=== PATIENT | female | born 1950 | race Caucasian/White ===

== ENCOUNTER → 2018-10-19 | Day surgery (SDC) | payer MEDICARE ==
[2018-09-28 14:09] LABS: BASOPHILS % 0.5 % (0.0-1.0); EOSINOPHILS # (AUTO) 0.1 (0.0-0.4); EOSINOPHILS % 1.1 % (0.0-6.0); HEMATOCRIT 41.2 % (34.2-44.1); HEMOGLOBIN 13.4 g/dL (12.0-16.0); LYMPHOCYTES # (AUTO) 3.3 (1.0-3.2); LYMPHOCYTES % 43.2 % (18.0-39.1); MEAN CORPUSCULAR HGB CONC 32.5 g/dL (31-35); MEAN CORPUSCULAR VOLUME 92.2 fL (81-99); MONOCYTES # (AUTO) 0.6 (0.2-0.8); MONOCYTES % 8.2 % (4.4-11.3); NEUTROPHILS # (AUTO) 3.5 (2.1-6.9); NEUTROPHILS % 46.7 % (38.7-80.0); PLATELET COUNT 242 x10e3/uL (140-360); RED BLOOD COUNT 4.47 x10e6/uL (3.6-5.1); RED CELL DISTRIBUTION WIDTH 13.2 % (11.7-14.4)
[~2018-10-19] MED LIST: ASPIRIN81 MG PO; COQ-10100 MG PO; EVISTA60 MG PO; FENTANYL CITRATE/PF 100MCG/2 ML INJ ONE; HYOSCYAMINE 0.125 MG TAB ONE; MAGNESIUM500 MG PO; MIDAZOLAM HCL 2 MG/2 ML VIAL ONE; MULTI-VITAMIN1 EACH PO; PROPOFOL IV EMULSION 10 MG/ML 50 ML VIAL ONE; RANITIDINE HCL150 MG PO; RED YEAST RICE600 MG PO; VITAMIN D35000 UNIT PO; [UNRECOGNIZED DRUG - OTHER] PO
--- OUTSIDE RECORDS SUMMARY | 2018-10-19 06:43 | XMS REPORT | Clinical Summary ---
Author Author [place] [employer] Address Unknown Phone Unavailable Care Team Providers Care Biofuels Production Technician Name Role Phone Rasheeda Sow MD PCP Allergies No Known Allergies Medications No known medications Active Problems Not on file Encounters Care Team Description Date Type Specialty Rasheeda Sow MD Cervical strain, initial encounter 04/13/2018 Hospital Radiology Encounter Rasheeda Sow MD Screening for malignant neoplasm of breast 04/13/2018 Hospital Radiology Encounter Rasheeda Sow MD Screening for malignant neoplasm of breast (Primary Dx) 04/12/2018 Transcribe Access Orders after 10/18/2017 Social History Date Tobacco Use Types Packs/Day Years Used Never Smoker Smokeless Tobacco: Never Used Alcohol Use Drinks/Week oz/Week Comments No Sex Assigned at Date Recorded Not on file Industry Job Start Date Occupation Not on file Not on file Not on file Travel End Travel History Travel Start No recent travel history available. Last Filed Vital Signs Not on file Plan of Treatment Health Maintenance Due Date Last Done Comments COLONOSCOPY SCREENING 01/12/1998 SHINGLES VACCINES (#1) 01/12/1998 65+ PNEUMOCOCCAL VACCINE 01/12/2013 (1 of 2 - PCV13) INFLUENZA VACCINE 10/13/2018 BREAST CANCER SCREENING 04/13/2020 04/13/2018, 04/02/2017, 03/26/2016, Additional history exists Procedures Comments Procedure Name Priority Date/Time Associated Diagnosis XR CERVICAL SPINE Routine 04/13/2018 Cervical strain, initial COMPLETE W FLEX EXT 8:13 AM [employer] encounter MAMMO BREAST SCREEN Routine 04/13/2018 Screening for malignant TOMOSYNTHESIS BILATERAL 7:35 AM [employer]CESSION WORKER neoplasm of breast after 10/18/2017 Results * XR Cervical Spine Complete w flex/ext (04/13/2018 8:13 AM CONCESSION WORKER) Specimen Narrative Performed At EXAMINATION: XR CERVICAL SPINE COMPLETE W FLEX EXT RADIANT CLINICAL HISTORY: S16.1XXA Strain of musclefascia and tendon at neck levelinitial encounter COMPARISON:None IMPRESSION: 8 views of the cervical spine including dynamic lateral radiographs are submitted. There is straightening of normal cervical lordosis. Moderate disc degenerative changes are noted at C5-6 and C6-7. Mild disc degenerative changes at C4-5. 1-2 mm grade 1 anterolisthesis is induced on flexion at C3 relative to C4 Vertebral heights are preserved. No fracture or aggressive bone lesion is seen. The prevertebral soft tissues are unremarkable. [id number] Procedure Note Interface, Radiology Results Incoming - 04/13/2018 8:25 AM CONCESSION WORKER EXAMINATION: XR CERVICAL SPINE COMPLETE W FLEX EXT CLINICAL HISTORY: S16.1XXA Strain of muscle fascia and tendon at neck level initial encounter COMPARISON: None IMPRESSION: 8 views of the cervical spine including dynamic lateral radiographs are submitted. There is straightening of normal cervical lordosis. Moderate disc degenerative changes are noted at C5-6 and C6-7. Mild disc degenerative changes at C4-5. 1-2 mm grade 1 anterolisthesis is induced on flexion at C3 relative to C4 Vertebral heights are preserved. No fracture or aggressive bone lesion is seen. The prevertebral soft tissues are unremarkable. [id number] Performing Organization Address City/State/Zipcode Phone Number [facility] [phone] [place] [address] * Mammo Breast Screen Tomosynthesis Bilateral (04/13/2018 7:35 AM CONCESSION WORKER) Specimen Narrative Performed At PROCEDURE: MAMMO BREAST SCREEN [facility] Computer aided detection was utilized for the interpretation of the digital bilateral screening mammography with tomosynthesis. COMPARISON: Prior studies dating 04/02/2017, 03/26/2016, 02/18/2015 and 02/02/2014 DENSITY: The breast parenchyma is heterogeneously dense, decreasing the sensitivity of the study. There are benign scattered calcifications in both breasts. There is no suspicious new masses, architectural distortions or grouped calcifications. IMPRESSION:No mammographic evidence of malignancy. RECOMMENDATION: Comparison with physical exam and annual screening mammography. BI-RADS 2: Benign. This facility is accredited by the [employer] for Mammography. A negative x-ray report should not delay biopsy if a dominant or clinically suspicious mass is present.Not all cancers are identified by x-ray. [id number] Performing Organization Address City/State/Zipcode Phone Number [facility] [phone] [place] [address] after 10/18/2017 Insurance Type Payer Benefit Subscriber ID Effective Phone Address Plan / Dates Group PPO HUMANA MEDICARE HUMANA xxxxxxxxx 2017-P MEDICARE resent PPO/PFFS/E [facility] Advance Directives Patient has advance care planning documents on file. For more information, nayan rowan contact: Wayne Caballero [address] [place] [address]
[2018-10-19 10:22] VITALS: BP 118/74
--- NOTE | 2018-10-19 16:15 | Operative Report ---
DATE OF PROCEDURE: 10/19/2018 SURGEON: Alcon Davis MD PROCEDURE: Colonoscopy and polypectomy. INDICATIONS FOR COLONOSCOPY: Surveillance colonoscopy, personal history of colon polyps. MEDICATIONS: The patient was done under MAC, please see anesthesiologist's note. PROCEDURE IN DETAIL: With the patient in left lateral decubitus position, a flexible fiberoptic Olympus colonoscope was inserted into the rectum with ease and advanced all the way to the cecum. The scope was then withdrawn slowly. Mucosa overlying the cecum, ascending colon, and transverse colon appeared to be within normal limits. A minute nodule was biopsied from the proximal descending colon. Four polyps were hot biopsied from the sigmoid. Three polyps were hot biopsied from the rectum. The scope was then retroflexed into the distal rectum and moderate-sized internal hemorrhoids were noted, none of which was actively bleeding. The scope was then straightened out, it was subsequently withdrawn. The patient tolerated the procedure well. IMPRESSION: 1. Descending colon, minute nodule, cold biopsied. 2. Sigmoid colon polyps x4, hot biopsied. 3. Rectal polyps x3, hot biopsied. 4. Internal hemorrhoids, none actively bleeding. PLAN: Follow up histology. Initiate high-fiber, low-fat diet. Initiate high-fiber supplement. The patient might benefit from a followup colonoscopy in 5 years. Alcon Davis MD [facility] [place][id number] cc: Rasheeda Sow MD
== END | disposition home or self-care (01) ==
LOC: OR 06:41
PROVIDERS: ATTEND Internal Medicine Gastroenterology
DX: K63.5 Polyp of colon (principal); K62.1 Rectal polyp; R14.0 Abdominal distension (gaseous); K52.9 Noninfective gastroenteritis and colitis, unspecified; K59.00 Constipation, unspecified; K62.5 Hemorrhage of anus and rectum; K21.9 Gastro-esophageal reflux disease without esophagitis; M19.90 Unspecified osteoarthritis, unspecified site; Z80.0 Family history of malignant neoplasm of digestive organs; K64.8 Other hemorrhoids; R03.0 Elevated blood-pressure reading, without diagnosis of hypertension; Z68.29 Body mass index [BMI] 29.0-29.9, adult; R12 Heartburn
CPT/HCPCS: 36415; 45380; 45384; 85025; 88305; 93005; J2250; J2704; J3010; 45378

== ENCOUNTER → 2019-12-13 | Day surgery (SDC) | payer MEDICARE, OTHER ==
[2019-12-08 10:42] LABS: BASOPHILS # (AUTO) 0.1 (0.0-0.1); BASOPHILS % 0.9 % (0.0-1.0); EOSINOPHILS # (AUTO) 0.1 (0.0-0.4); EOSINOPHILS % 1.4 % (0.0-6.0); HEMATOCRIT 41.3 % (34.2-44.1); HEMOGLOBIN 13.1 g/dL (12.0-16.0); LYMPHOCYTES # (AUTO) 2.9 (1.0-3.2); LYMPHOCYTES % 43.8 % (18.0-39.1); MEAN CORPUSCULAR HEMOGLOBIN 29.4 pg (28-32); MEAN CORPUSCULAR HGB CONC 31.7 g/dL (31-35); MEAN CORPUSCULAR VOLUME 92.8 fL (81-99); MONOCYTES # (AUTO) 0.6 (0.2-0.8); MONOCYTES % 8.6 % (4.4-11.3); NEUTROPHILS # (AUTO) 2.9 (2.1-6.9); NEUTROPHILS % 45.1 % (38.7-80.0); PLATELET COUNT 200 x10e3/uL (140-360); RED BLOOD COUNT 4.45 x10e6/uL (3.6-5.1); RED CELL DISTRIBUTION WIDTH 13.2 % (11.7-14.4)
[~2019-12-13] MED LIST changes: +ATORVASTATIN CA20 MG PO; -FENTANYL CITRATE/PF 100MCG/2 ML INJ ONE; -HYOSCYAMINE 0.125 MG TAB ONE; +LIDOCAINE HCL 2% LOCAL INJ 5 ML SDV VIAL INJ ONE; +PROPOFOL IV EMULSION 10 MG/ML 20 ML VIAL ONE; -PROPOFOL IV EMULSION 10 MG/ML 50 ML VIAL ONE
--- NOTE | 2019-12-13 07:15 | NUR ---
SPIRITUAL CARE - Pre-Surgery Assessment: Pt in bed. Pt's at bedside. Pt reported supportive attention from family and friends. Intervention: Aeronautical Engineering Officer provided pastoral presence, hospitality, and sympathetic listening. Acquainted pt with availability of r developer while hospitalized. Outcome: Pt expressed appreciation for visit. No need for follow up indicated at this time. MARTHA Mohan Spiritual Care Department O: [phone]
[2019-12-13 08:40] VITALS: BP 116/71
--- NOTE | 2019-12-13 10:16 | Operative Report ---
DATE OF PROCEDURE: 12/13/2019 SURGEON: Alcon Davis MD PROCEDURE: EGD with biopsies. INDICATIONS FOR EGD: Burning, upper abdominal pain, heartburn, bloating. MEDICATIONS: The patient was done under MAC, please see anesthesiologist's note. PROCEDURE IN DETAIL: With the patient in the left lateral decubitus position, the flexible fiberoptic Olympus gastroscope was introduced into the esophagus under direct visualization without any difficulty. There was some patchy erythema noted in distal esophagus. Some focal nodularity was noted at the GE junction that was biopsied. The scope was then advanced with ease into the stomach traversing a small hiatal hernia. The mucosa overlying the antrum and the body revealed some patchy erythema and [id number] edema, and biopsies were obtained and sent to stain for H. pylori. The pylorus was of normal contour and shape, was intubated with ease and the scope was advanced all the way to the second portion of the duodenum. Biopsies were obtained from the proximal second portion and duodenal bulb to rule out sprue. The scope was then withdrawn back into the stomach and retroflexed, and previously described hiatal hernia was also noted in the retroflexed position. The scope was then straightened out, it was subsequently withdrawn, and the patient tolerated the procedure well. IMPRESSION: 1. Distal esophagitis, mild. 2. Focal nodularity, GE junction, biopsied. 3. Hiatal hernia. 4. Gastritis, biopsied, biopsies sent to stain for Helicobacter pylori. 5. Rule out sprue. PLAN: Follow up histology. Increase Protonix to 40 mg one p.o. before meals b.i.d. Alcon Davis MD [facility] [place][id number] cc: Rasheeda Sow MD
== END | disposition home or self-care (01) ==
LOC: OR 05:45
PROVIDERS: ATTEND Internal Medicine Gastroenterology
DX: K29.70 Gastritis, unspecified, without bleeding (principal); K20.9 Esophagitis, unspecified; K22.8 Other specified diseases of esophagus; K44.9 Diaphragmatic hernia without obstruction or gangrene; K21.9 Gastro-esophageal reflux disease without esophagitis; K58.9 Irritable bowel syndrome, unspecified; Z86.010 Personal history of colon polyps; M19.90 Unspecified osteoarthritis, unspecified site; E78.5 Hyperlipidemia, unspecified; E11.9 Type 2 diabetes mellitus without complications; R00.1 Bradycardia, unspecified; Z01.810 Encounter for preprocedural cardiovascular examination; Z01.812 Encounter for preprocedural laboratory examination; Z11.59 Encounter for screening for other viral diseases; Z79.82 Long term (current) use of aspirin; Z68.27 Body mass index [BMI] 27.0-27.9, adult; Z80.0 Family history of malignant neoplasm of digestive organs
CPT/HCPCS: 36415 ×2; 43239; 82948; 85025; 93005; J2001; J2250; J2704; U0002

== ENCOUNTER 2020-11-01 07:16 | Observation (INO) | payer MEDICARE ==
[2020-10-29 12:59] LABS: BASOPHILS % 0.6 % (0.0-1.0); EOSINOPHILS # (AUTO) 0.1 (0.0-0.4); EOSINOPHILS % 0.8 % (0.0-6.0); HEMATOCRIT 39.8 % (34.2-44.1); HEMOGLOBIN 12.7 g/dL (12.0-16.0); LYMPHOCYTES # (AUTO) 3.3 (1.0-3.2); MEAN CORPUSCULAR HEMOGLOBIN 31.3 pg (28-32); MEAN CORPUSCULAR HGB CONC 31.9 g/dL (31-35); MONOCYTES # (AUTO) 0.5 (0.2-0.8); MONOCYTES % 7.3 % (4.4-11.3); NEUTROPHILS # (AUTO) 3.2 (2.1-6.9); NEUTROPHILS % 45.2 % (38.7-80.0); PLATELET COUNT 184 x10e3/uL (140-360); RED BLOOD COUNT 4.06 x10e6/uL (3.6-5.1)
[2020-10-29 13:17] LABS: ANION GAP 12.9 mmol/L (8-16); CALCIUM 8.4 mg/dL (8.4-10.2); CREATININE, SERUM 0.95 mg/dL (0.57-1.11); POTASSIUM 4.9 mmol/L (3.5-5.1)
[~2020-11-01] VITALS: Ht 160 cm; Wt 55.3 kg
[~2020-11-01 07:16] MED LIST changes: -LIDOCAINE HCL 2% LOCAL INJ 5 ML SDV VIAL INJ ONE; +LINZESS145 MCG PO; -MIDAZOLAM HCL 2 MG/2 ML VIAL ONE; -PROPOFOL IV EMULSION 10 MG/ML 20 ML VIAL ONE
[2020-11-01] MEDS ORDERED: LIDOCAINE 1% W/EPINEPHRINE 20 ML VIAL ONE (09:57)
[2020-11-01] MEDS ORDERED: LIDOCAINE JELLY 2% 10ML URO-JET ONE (09:58)
[2020-11-01] MEDS ORDERED: LIDOCAINE HCL 2% JELLY 5 ML TUBE ONE (09:59)
[2020-11-01] MEDS ORDERED: HYDROCODONE/APAP 7.5MG-325MG 1 EA TAB PO PRN (11:45)
[2020-11-01] MEDS ORDERED: KETOROLAC TROMETHAMINE 30 MG/ML VIAL IV PRN (11:45)
[2020-11-01] MEDS ORDERED: ONDANSETRON HCL INJ 2MG/ML 2ML 2 MG/ML VIAL IV PRN (11:45)
[2020-11-01] MEDS ORDERED: HYDROMORPHONE 1MG/1ML INJ IV PRN (11:45)
[2020-11-01] MEDS ORDERED: SODIUM CHLORIDE 0.9% 1000ML 1,000 ML IV SCH (13:00)
[2020-11-01 14:12] VITALS: BP 117/58
[2020-11-01 14:29] VITALS: BP 117/58
[2020-11-01 14:33] VITALS: BP 117/58
[2020-11-01 15:06] VITALS: BP 117/58
[2020-11-01 15:23] VITALS: BP 101/68
[2020-11-01] MEDS ORDERED: DEXTROSE 50% SYRINGE 50 ML IV PRN (15:30)
[2020-11-01] MEDS ORDERED: INSULIN LISPRO 100 UNIT/1 ML 3ML VIAL SQ SCH (16:30)
[2020-11-02] MEDS ORDERED: PANTOPRAZOLE SOD 40 MG TABEC PO SCH (07:30)
[2020-11-02] MEDS ORDERED: AMLODIPINE BESYLATE 5 MG TAB PO SCH (09:00)
== END 2020-11-01 17:02 | disposition home or self-care (01) ==
LOC: OR 07:16 → PACU V 11:25 → MED/SURG 12:42
PROVIDERS: ADMIT Surgery; ATTEND Surgery
DX: K64.8 Other hemorrhoids (principal); E11.9 Type 2 diabetes mellitus without complications; K21.9 Gastro-esophageal reflux disease without esophagitis; K59.09 Other constipation; E78.5 Hyperlipidemia, unspecified; Z01.810 Encounter for preprocedural cardiovascular examination; Z01.812 Encounter for preprocedural laboratory examination; Z01.818 Encounter for other preprocedural examination; Z20.822 Contact with and (suspected) exposure to COVID-19
CPT/HCPCS: 36415 ×2; 46260; 71046; 80048; 82948; 85025; 88304; 93005; G0378; J2001; J7030; U0002